=== PATIENT | female | born 1965 | race Native Hawaiian/Other Pacific Islander ===

== ENCOUNTER 2018-12-21 09:17 | Outpatient (CLI) | payer OTHER ==
[~2018-12-21 09:17] MED LIST: ADIPEX PO; ALPR0.2566 PO; GABA100C2 PO; HYDR25TA60 PO; Z-PAK PO
[2018-12-21 10:04] LABS: PLATELET COUNT 237 K/uL (152-353)
[2018-12-21 10:26] LABS: POTASSIUM 3.8 mmol/L (3.6-5.2)
== END 2018-12-21 19:48 | disposition home or self-care (01) ==
LOC: LABW 09:17
PROVIDERS: Family Medicine
DX: R03.0 Elevated blood-pressure reading, without diagnosis of hypertension (principal); E66.3 Overweight
CPT/HCPCS: 36415; 80053; 80061; 81000; 84439; 84443; 85027

== ENCOUNTER 2019-06-26 08:46 | Outpatient (CLI) | payer OTHER ==
[2019-06-26 09:30] LABS: PLATELET COUNT 208 K/uL (152-353)
[2019-06-26 09:44] LABS: POTASSIUM 3.9 mmol/L (3.6-5.2)
== END 2019-06-26 20:31 | disposition home or self-care (01) ==
LOC: LABW 08:46
PROVIDERS: Family Medicine
DX: G89.4 Chronic pain syndrome (principal); E03.9 Hypothyroidism, unspecified; L30.9 Dermatitis, unspecified; Z83.3 Family history of diabetes mellitus
CPT/HCPCS: 36415; 80053; 80061; 83036; 84443; 85027

== ENCOUNTER 2019-10-29 09:29 | Outpatient (CLI) | payer OTHER ==
[2019-10-29 09:56] LABS: PLATELET COUNT 209 K/uL (152-353)
[2019-10-29 10:11] LABS: POTASSIUM 3.8 mmol/L (3.6-5.2); SODIUM 139 mmol/L (136-145)
== END 2019-10-29 19:15 | disposition home or self-care (01) ==
LOC: LABW 09:29
PROVIDERS: Family Medicine
DX: G89.4 Chronic pain syndrome (principal); Z79.899 Other long term (current) drug therapy; R07.9 Chest pain, unspecified; E03.9 Hypothyroidism, unspecified; E78.00 Pure hypercholesterolemia, unspecified; E66.3 Overweight
CPT/HCPCS: 36415; 80053; 80061; 81000; 82550; 83735; 84439; 84443; 84484; 85027; 93005

== ENCOUNTER 2019-11-02 09:00 | Outpatient (CLI) | payer OTHER | END 2019-11-02 20:12 | disposition home or self-care (01) | LOC: US 09:00 | DX: G89.4 Chronic pain syndrome (principal); Z79.899 Other long term (current) drug therapy; R07.9 Chest pain, unspecified; E03.9 Hypothyroidism, unspecified; E78.00 Pure hypercholesterolemia, unspecified; E66.3 Overweight ==

== ENCOUNTER 2020-09-26 09:49 | Outpatient (CLI) | payer OTHER | END 2020-09-26 19:33 | disposition home or self-care (01) | LOC: LAB 09:49 | PROVIDERS: ATTEND Family Medicine | DX: Z20.828 Contact with and (suspected) exposure to other viral communicable diseases (principal) ==